=== PATIENT | female | born 1965 | race Caucasian/White ===

== ENCOUNTER 2022-02-10 11:05 | Outpatient (CLI) | payer OTHER ==
[~2022-02-10 11:05] MED LIST: ACTONEL150 MG PO; AMBIEN10 MG PO; AVONEX30 MCG/0.1 IM; BACLOFEN20 MG PO; BRAIN MIGHT-DH1 EACH PO; CALCUIM PO; COD LIVER OIL1 EACH PO; COLLAGEN PO; IRON1 TA1 PO; NORVASC5 MG PO; OMEGA 3 FISH OI1 CAP PO; PERCOCET 5/321 UDTAB PO
== END 2022-02-10 11:07 | disposition home or self-care (01) ==
LOC: SONOGRAMA 11:05
PROVIDERS: ATTEND Pathology Anatomic Pathology & Clinical Pathology
DX: E04.2 Nontoxic multinodular goiter (principal)

== ENCOUNTER 2024-06-10 08:30 | Outpatient (CLI) | payer OTHER | END 2024-06-10 09:00 | disposition home or self-care (01) | LOC: SONOGRAMA 08:30 | PROVIDERS: ATTEND Pathology Anatomic Pathology | DX: D34 Benign neoplasm of thyroid gland (principal); E07.89 Other specified disorders of thyroid; E04.2 Nontoxic multinodular goiter ==